=== PATIENT | female | born 1950 | race Caucasian/White ===

== ENCOUNTER → 2023-10-20 06:20 | Day surgery (SDC) | payer OTHER, MEDICARE, SELFPAY | LOC: GI 06:20 | PROVIDERS: ATTENDING PHYSICIAN Internal Medicine Gastroenterology; FAMILY PHYSICIAN Family Medicine | DX: Z12.11 Encounter for screening for malignant neoplasm of colon (principal); K57.30 Diverticulosis of large intestine without perforation or abscess without bleeding; K64.8 Other hemorrhoids | CPT/HCPCS: G0121 ==